=== PATIENT | male | born 1965 | race African-American/Black ===

== ENCOUNTER → 2016-11-11 | Outpatient (CLI) | payer MEDICARE, BC ==
[2016-11-11 16:55] LABS: Anion Gap 9 mmol/L; Blood Urea Nitrogen 16 mg/dL (9-20); Carbon Dioxide 26 mmol/L (22-30); Chloride 106 mmol/L (98-107); Glucose 91 mg/dL (74-99); Non-African American GFR(MDRD) >60 (>60 ml/min/1.73 sqM); Potassium 4.6 mmol/L (3.5-5.1); Sodium 141 mmol/L (137-145)
--- NOTE | 2016-11-12 17:09 | MR ---
MR abdomen with and without contrast HISTORY: Abnormal renal ultrasound Multiplanar multisequence and postcontrast images obtained through the kidneys following 15 cc MultiH ance IV. Exam is correlated to prior ultrasound kidneys 04 July 2015, CT abdomen pelvis without co ntrast October 2014 There is susceptibility artifact due to patient's metallic clips about the level of the cephalad aspe ct of the kidneys. There is no hydronephrosis. Adrenal glands are not seen. Multiple cystic foci are scattered within the kidneys bilaterally compatible with subcentimeter cortical cysts. The isointense focus in the upper pole of the left kidney measures approximately 15 x 18mm and enhances similar to prior exam. There may be some associated fat. Small lesion immediately anterior is less well-defined and shows similar signal characteristics measuring approximately 8 mm in size. No evident retroperito girish adenopathy. Aorta shows normal caliber. No evident liver mass. There is no ascites. Gallbladder is unremarkable. Spleen is normal as seen. Pa ncreas within normal limits. IMPRESSION: Postop changes. The left renal mass appears to be stable. Consider additional follow-up t o assess for stability.
== END | disposition home or self-care (01) ==
LOC: RADMRIMAIN 16:24
PROVIDERS: ATTEND Urology
DX: N28.89 Other specified disorders of kidney and ureter (principal); Z98.890 Other specified postprocedural states
CPT/HCPCS: 80048; 74183; A9577

== ENCOUNTER → 2017-05-08 | Outpatient (CLI) | payer MEDICARE, BC ==
--- NOTE | 2017-05-08 10:09 | US ---
EXAMINATION TYPE: US thyroid st tissue head/neck DATE OF EXAM: 05/08/2017 COMPARISON: US 2016 CLINICAL HISTORY: 52-year-old male Renal Mass N28.89, Goiter E04.2. Follow up thyroid nodules TECHNIQUE: Multiple sonographic images of the thyroid gland were obtained. FINDINGS: GLAND SIZE: Right Lobe: 4.5 x 1.6 x 1.5 cm Overall Parenchyma: homogenous Left Lobe: 4.5 x 1.4 x 1.5 cm Overall Parenchyma: homogeneous Isthmus Thickness: 0.6 cm NODULES RIGHT: # of nodules measured on right: 1 1. 1.0 X 0.7 x 0.9 cm hypoechoic solid nodule at the mid pole with poorly defined margins. This nod ule is wider than tall and shows intranodular vascularity. Prior size: 0.9 x 0.6 x 0.7 cm LEFT: # of nodules measured on left: 2 1. 0.7 X 0.5 x 0.5 cm hypoechoic nodule at the mid pole with well-defined margins. This nodule is w ider than tall and shows intranodular vascularity. Prior size: 0.6 x 0.3 x 0.6 cm 2. 0.4 X 0.3 x 0.4 cm mixed, solid cystic nodule at the lower pole with well-defined margins. This n odule is wider than tall and shows no intranodular vascularity. Prior size: 0.3 x 0.2 x 0.3 cm ISTHMUS: # of nodules measured in the isthmus: 0 Bilateral neck scanned, no evidence of lymphadenopathy. IMPRESSION: 1. A dominant nodule on the right measuring 1 cm and two subcentimeter nodules on the left measuring up to 7 mm. Each of these has minimally increased in size by a millimeter or two. 2. Follow-up can be performed. If any further size increase of the dominant nodule, FNA can be consid ered.
--- NOTE | 2017-05-08 11:05 | US ---
EXAMINATION TYPE: US kidneys/renal and bladder DATE OF EXAM: 05/08/2017 COMPARISON: MRI 11/11/2016, ultrasound 07/04/2015, and CT 10/06/2014, 11/25/2012. CLINICAL HISTORY: 52-year-old male Renal Mass N28.89, Goiter E04.2. Follow up left kidney mass, histo ry of bilateral adrenals removed. TECHNIQUE: Multiple sonographic images of the kidneys and bladder are obtained. FINDINGS: Right Kidney: 10.0 x 4.1 x 5.1 cm with mild pelviectasis, probably transient. No calyceal dilatation . Limited assessment of the lower pole due to bowel gas shadowing. Technology Administrator notes:Two linear echogenic foci seen anterior to upper pole of right kidney, possible s urgical clips from previous adrenalectomy. Left Kidney: 10.0 x 6.0 x 4.5 cm without hydronephrosis. Redemonstrated round heterogeneously echogen ic lesion along the upper to mid pole. This measures 1.5 x 1.5 x 1.4 cm currently and shows some lev pheral vascularity. - On 07/04/2015 ultrasound, it measured 1.6 cm. - It is subtly visualized on the noncontrast 10/06/2014 CT, coronal image 42 measuring 1.6 cm. - It also seems to have been present in retrospect back on the CT of 11/25/2012. Bladder: wnl Bilateral Jets seen: yes IMPRESSION: Essentially stable solid 1.5 cm hyperechoic mass in the upper to midpole left kidney. An enhancing ma ss was present back to the 11/25/2012 CT. 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 Annual ultrasound surveillance can be performed.
== END | disposition home or self-care (01) ==
LOC: RADUSWWP 08:50
PROVIDERS: ATTEND Family Medicine
DX: N28.89 Other specified disorders of kidney and ureter (principal); E04.2 Nontoxic multinodular goiter
CPT/HCPCS: 76536; 76770

== ENCOUNTER → 2017-05-08 | Outpatient (CLI) | payer MEDICARE, BC ==
[2017-05-08 10:06] LABS: Non-African American GFR(MDRD) >60 (>60 ml/min/1.73 sqM)
--- NOTE | 2017-05-08 11:58 | MR ---
EXAMINATION TYPE: MR brain wo/w con DATE OF EXAM: 05/08/2017 COMPARISON: 05/26/2012 HISTORY: Neoplasm of uncertain behavior, Optic nerve tumor removed x 12 years TECHNIQUE: Multiplanar, multisequence images of the brain and brainstem is performed without and with IV contras t, utilizing 7 mL intravenous Gadavist . FINDINGS: There is postsurgical change involving the occiput. Encephalomalacia involving cerebellum on the righ t noted. No enhancing mass. Mild to moderate generalized degenerative change with no midline shift. There is extensive changes of chronic sinusitis. Nonspecific areas of abnormal signal the white matter is most typical remote microvascular cyst anemi a. Demyelinating process not entirely excluded. Intraorbital structures have a symmetric appearance. Optic chiasm has a normal appearance. IMPRESSION: 1. Postsurgical Changes with no evidence of enhancing mass. 2. Degenerative change and nonspecific white matter changes. Correlate for remote microvascular ische gabriel. 3. Extensive changes of chronic sinusitis
== END | disposition home or self-care (01) ==
LOC: RADMRIMAIN 09:33
PROVIDERS: ATTEND Family Medicine
DX: D43.9 Neoplasm of uncertain behavior of central nervous system, unspecified (principal); R90.82 White matter disease, unspecified; G31.9 Degenerative disease of nervous system, unspecified; Z98.890 Other specified postprocedural states
CPT/HCPCS: 82565; 70553; 36415; A9581

== ENCOUNTER → 2017-08-21 | Outpatient (CLI) | payer MEDICARE, BC ==
--- NOTE | 2017-08-21 09:32 | US ---
EXAMINATION TYPE: US thyroid st tissue head/neck DATE OF EXAM: 08/21/2017 COMPARISON: NONE CLINICAL HISTORY: 52-year-old male E04.1 Nontoxic Single Thyroid Nodule. Follow up nodules, no hx of bx TECHNIQUE: Multiple sonographic images of the thyroid gland are obtained. FINDINGS: GLAND SIZE: Right Lobe: 3.3 x 1.4 x 1.8 cm Overall Parenchyma: homogenous Left Lobe: 3.7 x 1.6 x 1.8 cm Overall Parenchyma: homogeneous Isthmus Thickness: 0.8 cm NODULES RIGHT: # of nodules measured on right: 1 1. 0.9 X 0.8 x 0.8 cm hypoechoic solid nodule at the mid pole with poorly defined margins. This no dule is taller than wide and shows intranodular vascularity. Prior size: 1.0 x 0.7 x 0.9 cm LEFT: # of nodules measured on left: 2 1. 7 x 6 x 4 mm hypoechoic solid nodule at the mid pole with well-defined margins. This nodule is wi anibal than tall and shows intranodular vascularity. Prior size: 0.7 x 0.5 x 0.5 cm 2. 0.4 X 0.4 x 0.3 cm mixed nodule at the lower pole with well-defined margins. This nodule is tall er than wide and shows no intranodular vascularity. Prior size: 0.4 x 0.3 x 0.4 cm ISTHMUS: # of nodules measured in the isthmus: 0 Bilateral neck scanned, no evidence of lymphadenopathy. IMPRESSION: A total of 3 subcentimeter nodules, largest on the right measures 9 mm and is relatively stable from 05/08/2017.
== END | disposition home or self-care (01) ==
LOC: RADUSWWP 08:52
PROVIDERS: ATTEND Family Medicine
DX: E04.2 Nontoxic multinodular goiter (principal)
CPT/HCPCS: 76536

== ENCOUNTER → 2017-11-10 | Outpatient (CLI) | payer MEDICARE, BC ==
--- NOTE | 2017-11-10 17:06 | US ---
EXAMINATION TYPE: US kidneys/renal and bladder DATE OF EXAM: 11/10/2017 COMPARISON: US, CT ultrasound 05/08/2017. CLINICAL HISTORY: N28.89 specified disorder of kidney and ureter; patient stated has had bilateral ad renalectomy; following left renal cortical mass. EXAM MEASUREMENTS: Right Kidney: 9.6 x 5.1 x 3.9 cm Left Kidney: 10.3 x 5.5 x 5.9 cm Post Void Residual Volume: 1.9 mL Bilateral hyperechoic linear areas are seen at area of adrenalectomy and could represent surgical cli ps. Right Kidney: No hydronephrosis or masses seen Left Kidney: left upper cortical,round, solid mass is seen again = 1.6 x 1.5 x 1.4cm Bladder: wnl, but not fully distended Bilateral Jets seen: Yes Normal Post Void Residual: Yes IMPRESSION: There is satisfactory bladder emptying. No evidence of renal obstruction. Stable hyperechoic cortical rounded 1.5 cm mass in the upper pole cortex left kidney. This is stable compared to 05/08/2017. This could be a complex cyst.
== END | disposition home or self-care (01) ==
LOC: RADUSWWP 16:18
PROVIDERS: ATTEND Family Medicine
DX: N28.89 Other specified disorders of kidney and ureter (principal)
CPT/HCPCS: 76770

== ENCOUNTER → 2018-01-02 | Outpatient (CLI) | payer MEDICARE, BC ==
--- NOTE | 2018-01-02 10:19 | US ---
EXAMINATION TYPE: US thyroid st tissue head/neck DATE OF EXAM: 01/02/2018 COMPARISON: NONE CLINICAL HISTORY: E04.2 Nontoxic Multinodular Goiter. GLAND SIZE: Prior thyroid ultrasound August 21, 2017 Right Lobe: 4.1 x 1.9 x 1.4 cm Overall Parenchyma: homogenous Left Lobe: 4.7 x 1.7 x 1.6 cm Overall Parenchyma: homogeneous Isthmus Thickness: 0.5 cm NODULES RIGHT: # of nodules measured on right: 1 1. 0.9 X 0.6 x 0.8 cm hypoechoic solid nodule at the mid pole with well-defined margins. This nodu le is wider than tall and shows intranodular vascularity. Prior size: 0.9 x 0.8 x 0.8 cm LEFT: # of nodules measured on left: 2 1. 0.4 X 0.3 x 0.3 cm anechoic cystic nodule at the lower pole with well-defined margins. This nod ule is wider than tall and shows no intranodular vascularity. Prior size: 0.4 x 0.4 x 0.3 cm 2. 0.7 X 0.4 x 0.5 cm hypoechoic solid nodule at the lower pole with well-defined margins. This nod ule is wider than tall and shows no intranodular vascularity. Prior size: 0.7 x 0.6 x 0.4 cm ISTHMUS: # of nodules measured in the isthmus: 0 Bilateral neck scanned, no evidence of lymphadenopathy. There is redemonstration of normal size homogeneous thyroid gland with few scattered small nodules. N o significant interval change. No new nodules are evident. IMPRESSION: Overall stable findings, no new or enlarging nodules identified.
== END | disposition home or self-care (01) ==
LOC: RADUSWWP 09:38
PROVIDERS: ATTEND Family Medicine
DX: E04.2 Nontoxic multinodular goiter (principal)
CPT/HCPCS: 76536

== ENCOUNTER → 2018-05-13 | Outpatient (CLI) | payer MEDICARE, BC ==
--- NOTE | 2018-05-13 10:36 | US ---
EXAMINATION TYPE: US kidneys/renal and bladder DATE OF EXAM: 05/13/2018 COMPARISON: Renal ultrasound dated 11/10/2017 and 05/08/2017. CT dated 11/25/2012. CLINICAL HISTORY: N28.89 Disorders of Kidney and Ureter. follow up left kidney lesion. Patient state s he had both adrenal glands removed due to tumors. EXAM MEASUREMENTS: Right Kidney: 9.1 x 5.2 x 3.7 cm Left Kidney: 9.9 x 4.4 x 6.3 cm Right Kidney: lateral cystic appearing lesion = 0.6 x 0.5 x 0.5 cm Left Kidney: upper pole cortical lesion - 1.5 x 1.4 x 1.4 cm. This seems to be present on the exam of 11/25/2012 and is stable from the priors (renal ultrasound dated 05/08/2017 this measured 1.5 x 1.5 x 1.4 cm as well). Bladder: distended, wnl as visualized Left jet seen There is no evidence for hydronephrosis at this point in time. No nephrolithiasis is seen. The urin dony bladder is anechoic. 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 New c ystic-appearing 6 mm right renal lesion.
== END | disposition home or self-care (01) ==
LOC: RADUSWWP 09:40
PROVIDERS: ATTEND Family Medicine
DX: N28.9 Disorder of kidney and ureter, unspecified (principal)
CPT/HCPCS: 76770

== ENCOUNTER → 2018-07-20 | Outpatient (CLI) | payer MEDICARE, BC ==
--- NOTE | 2018-07-21 07:32 | US ---
EXAMINATION TYPE: US thyroid st tissue head/neck DATE OF EXAM: 07/20/2018 COMPARISON: US CLINICAL HISTORY: E04.1 Nontoxic single thyroid nodule. GLAND SIZE: Right Lobe: 4.1 x 2.1 x 1.2 cm Overall Parenchyma: homogenous Left Lobe: 4.0 x 1.4 x 1.5 cm Overall Parenchyma: homogeneous Isthmus Thickness: 0.4 cm NODULES RIGHT: # of nodules measured on right: 1 1. 0.8 X 0.5 x 0.6 cm hypoechoic solid nodule at the mid pole with well-defined margins. This nodu le is taller than wide and shows intranodular vascularity. Prior size: 0.9 x 0.8 x 0.8 cm LEFT: # of nodules measured on left: 2 1. 0.5 X 0.3 x 0.4 cm anechoic cystic nodule at the lower pole with well-defined margins. This nodu le is wider than tall and shows no intranodular vascularity. Prior size: 0.4 x 0.3 x 0.3 cm 2. 0.6 X 0.4 x 0.4 cm hypoechoic solid nodule at the lower pole with well-defined margins . This no dule is wider than tall and shows intranodular vascularity. Prior size: 0.7 x 0.4 x 0.5 cm ISTHMUS: # of nodules measured in the isthmus: 0 Bilateral neck scanned, no evidence of lymphadenopathy. IMPRESSION: Similar size of the bilateral subcentimeter thyroid nodules with the largest nodule stable back to 09/08/2015 and similar size of the smaller left nodule dating back to 04/15/2016.
== END ==
LOC: RADUSWWP 16:55
PROVIDERS: ATTEND Family Medicine
DX: E04.2 Nontoxic multinodular goiter (principal)
CPT/HCPCS: 76536

== ENCOUNTER → 2019-07-20 | Outpatient (CLI) | payer MEDICARE, BC ==
--- NOTE | 2019-07-21 07:05 | US ---
EXAMINATION TYPE: US thyroid st tissue head/neck DATE OF EXAM: 07/20/2019 COMPARISON: US July 20, 2018 CLINICAL HISTORY: E04.2 Multinodular goiter. GLAND SIZE: Right Lobe: 3.9 x 1.4 x 1.2 cm Overall Parenchyma: homogenous Left Lobe: 4.7 x 15 x 1.6 cm Overall Parenchyma: homogeneous Isthmus Thickness: 0.6 cm NODULES RIGHT: # of nodules measured on right: 1 largest of couple of subcentimeter hypoechoic oval nodules seen 1. 0.3 X 0.3 x 0.3 cm hypoechoic mixed nodule at the mid pole with well-defined margins. This nodu le is wide as is tall and shows intranodular vascularity. Prior size: 0.8 x 0.5 x 0.6 cm LEFT: # of nodules measured on left: 1 1. 0.6 X 0.7 x 0.4 cm hypoechoic complex cystic nodule at the mid pole with well-defined margins. This nodule is wider than tall and shows intranodular vascularity. Prior size: 0.6 x 0.4 x 0.4 cm ISTHMUS: # of nodules measured in the isthmus: 0 Bilateral neck scanned: no evidence of lymphadenopathy. Persistent homogeneous normal-sized thyroid with stable small nodules bilaterally. IMPRESSION: As above, overall stable findings, no greater than 1 cm nodules are present.
== END | disposition home or self-care (01) ==
LOC: RADUSWWP 16:45
PROVIDERS: ATTEND Family Medicine
DX: E04.2 Nontoxic multinodular goiter (principal)
CPT/HCPCS: 76536

== ENCOUNTER → 2020-09-18 | Outpatient (CLI) | payer MEDICARE, BC ==
--- NOTE | 2020-09-19 08:46 | US ---
EXAMINATION TYPE: US thyroid st tissue head/neck DATE OF EXAM: 09/18/2020 COMPARISON: US 2019 CLINICAL HISTORY: E04.2 MULTINODULAR GOITER. GLAND SIZE: Right Lobe: 4.1 x 1.8 x 1.4 cm Overall Parenchyma: homogenous Left Lobe: 4.1 x 1.7 x 1.4 cm Overall Parenchyma: homogeneous Isthmus Thickness: 0.5 cm NODULES RIGHT: # of nodules measured on right: 0 LEFT: # of nodules measured on left: 1 1. 0.7 X 0.3 x 0.6 cm lateral mid pole solid or almost completely solid, hypoechoic nodule, which i s wider than tall, with smooth margins, without echogenic foci. Prior size: 0.6 x 0.7 x 0.4 cm ISTHMUS: # of nodules measured in the isthmus: 0 Bilateral neck scanned, no evidence of lymphadenopathy. IMPRESSION: Subcentimeter nodule left lobe thyroid. Follow-up exam in one year for monitoring. 2017 ACR TI-RADS LEVEL: TR-RADS 4 - Moderately Suspicious: Follow if > 1 cm, FNA if > 1.5 cm *Highest TI-RADS level nodule reported
== END | disposition home or self-care (01) ==
LOC: RADUSWWP 16:47
PROVIDERS: ATTEND Family Medicine
DX: E04.1 Nontoxic single thyroid nodule (principal)
CPT/HCPCS: 76536

== ENCOUNTER → 2023-07-11 | Outpatient (CLI) | payer MEDICARE, OTHER ==
[2023-07-11 18:21] LABS: Appearance,Urine Clear (Clear); Bilirubin,Urine Negative (Negative); Blood,Urine Trace (Negative); Color,Urine Yellow (Yellow); Ketones,Urine Trace (Negative); Nitrite,Urine Negative (Negative); PH, Urine 5.5; Specific Gravity,Urine 1.023 (1.001-1.030)
[2023-07-11 18:24] LABS: HCT 37.9 % (39.6-50.0); HGB 12.7 g/dL (13.0-17.0); MCH 33.9 pg (27.0-32.0); MCHC 33.5 g/dL (32.0-37.0); MCV 101.1 FL (80.0-97.0); Mean Platelet Volume 11.9 FL (9.5-12.2); NRBC Per 100 WBC 0 X 10*3/uL (0.00-0.01); Platelet Count 250 X 10*3/uL (140-440); RBC 3.75 X 10*6/uL (4.40-5.60); RDW 12.6 % (11.5-14.5); WBC 7.45 X 10*3/uL (4.50-10.00)
[2023-07-11 18:25] LABS: Bacteria,Urine None Seen (None Seen)
[2023-07-11 18:48] LABS: ALT 12 U/L (10-49); AST 22 U/L (14-35); Albumin 4.3 g/dL (3.8-4.9); Albumin/Globulin Ratio 1.72 Ratio (1.60-3.17); Alkaline Phosphatase 69 U/L (41-126); BUN/Creat Ratio 13.22 Ratio (12.00-20.00); Blood Urea Nitrogen 11.9 mg/dL (9.0-27.0); Calcium 9.9 mg/dL (8.7-10.3); Carbon Dioxide 24.6 mmol/L (21.6-31.8); Chloride 107 mmol/L (96-109); Chol/HDL Ratio 2.47 Ratio; Globulin 2.5 g/dL (1.6-3.3); Glucose 90 mg/dL (70-110); Potassium 4.1 mmol/L (3.5-5.5); Prostate Specific Antigen 0.56 ng/mL (0.000-3.500); Sodium 145 mmol/L (135-145); Total Bilirubin 0.2 mg/dL (0.3-1.2); Total Protein 6.8 g/dL (6.2-8.2)
== END | disposition home or self-care (01) ==
LOC: LABWHC1 09:01
PROVIDERS: ATTEND Family Medicine
DX: Z00.01 Encounter for general adult medical examination with abnormal findings (principal); I10 Essential (primary) hypertension; E78.00 Pure hypercholesterolemia, unspecified
CPT/HCPCS: 36415; 80053; 80061; 81001; 84153; 85027

== ENCOUNTER → 2023-10-20 | Outpatient (CLI) | payer MEDICARE, OTHER | END | disposition home or self-care (01) | LOC: LABWHC1 11:55 | PROVIDERS: ATTEND Student in an Organized Health Care Education/Training Program | DX: E11.9 Type 2 diabetes mellitus without complications (principal) | CPT/HCPCS: 36415; 83036 ==

== ENCOUNTER → 2023-11-10 | Outpatient (CLI) | payer MEDICARE, OTHER ==
[2023-11-10 16:46] LABS: T4, Free (Free Thyroxine) 1.13 ng/dL (0.80-1.80)
== END | disposition home or self-care (01) ==
LOC: LABWHC1 10:04
PROVIDERS: ATTEND Internal Medicine
DX: E27.8 Other specified disorders of adrenal gland (principal); E04.2 Nontoxic multinodular goiter; E55.9 Vitamin D deficiency, unspecified
CPT/HCPCS: 36415; 82306; 83835; 84439; 84443

== ENCOUNTER → 2024-07-05 | Outpatient (CLI) | payer OTHER, MEDICARE | END | disposition home or self-care (01) | LOC: LABWHC1 10:47 | PROVIDERS: ATTEND Internal Medicine Endocrinology, Diabetes & Metabolism | DX: E27.40 Unspecified adrenocortical insufficiency (principal); Q85.83 Von Hippel-Lindau syndrome; Z86.018 Personal history of other benign neoplasm | CPT/HCPCS: 36415; 82024; 82626; 83835 ==

== ENCOUNTER → 2024-07-19 | Outpatient (CLI) | payer OTHER, MEDICARE ==
--- NOTE | 2024-07-19 18:11 | MR ---
EXAMINATION TYPE: MR thoracic spine wo/w con DATE OF EXAM: 07/19/2024 5:44 PM COMPARISON: None. 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 IV Contrast: 6 mL Gadavist (None, if empty) FINDINGS: Alignment: Mild scoliotic alignment. Vertebral bodies have preserved heights. Spinal cord: Spinal cord is within normal limits for signal. No abnormal postcontrast enhancement. Discs: Intervertebral disc signal is maintained. No evidence of significant spinal canal or neural fo raminal stenosis. There is no evidence of extradural defects or central spinal canal narrowing at any thoracic vertebral body level No abnormal postcontrast enhancement. Osseous structures: No abnormal bony edema on inversion recovery sequences. Multilevel osteophyte for mation and facet joint arthropathy are minimal. Scattered disc space narrowing. No abnormal postcontr ast enhancement. IMPRESSION: 1. No evidence for mass. No abnormal postcontrast enhancement. 2. No significant spinal canal or neural foraminal stenosis. 3. Mild degeneration changes throughout the spine. [facility], , 07/19/2024 6:09 PM
== END | disposition home or self-care (01) ==
LOC: RADMRIMAIN 16:19
PROVIDERS: ATTEND Internal Medicine Endocrinology, Diabetes & Metabolism
DX: M47.814 Spondylosis without myelopathy or radiculopathy, thoracic region (principal); Q85.83 Von Hippel-Lindau syndrome; Z87.898 Personal history of other specified conditions
CPT/HCPCS: 72157; A9585

== ENCOUNTER → 2024-08-02 | Outpatient (CLI) | payer OTHER, MEDICARE ==
--- NOTE | 2024-08-02 11:33 | MR ---
EXAMINATION TYPE: MR abdomen wo/w con DATE OF EXAM: 08/02/2024 10:06 AM INDICATION: Patient age:Male; 59 years old; Reason for study: Benign tumors of the kidneys, history of von Hippel-Lindau COMPARISON: Renal ultrasound 05/13/2018, 11/10/2017, 05/08/2017, 07/04/2015, MR abdomen 11/11/2016 TECHNIQUE: Multiplanar multi-sequence imaging was performed without and with IV contrast. The patien t was given 5 ccs of Gadobutrol intravenously and dynamic imaging was performed. Post IV contrast sub traction images were also submitted for review. FINDINGS: LOWER CHEST: No gross irregularity. Median sternotomy wires. ABDOMEN Liver: Unremarkable. Gallbladder and Bile ducts: Unremarkable. Pancreas: Unremarkable. Spleen: Unremarkable. Adrenal glands: Unremarkable. Kidneys: No hydronephrosis. Multiple cystic foci are scattered within the kidneys bilaterally compati ble with subcentimeter cortical cysts again. Several of these demonstrate intrinsic T1 hyperintensity without enhancement consistent with proteinaceous/hemorrhagic cyst. Redemonstration of isointense fo cus within the upper pole of the left kidney measuring 1.4 x 1.2 cm, previously 1.5 x 1.8 cm. This en hances similar to prior exam. No definitive drop out of signal on out of phase imaging. Small lesion immediately anterior is less well-defined shows similar signal characteristics measuring approximatel y 0.8 cm in size. Susceptibility artifact around the kidneys related to surgical clips again. Stomach and Bowel: Unremarkable as visualized. Peritoneum: No evidence of pneumoperitoneum, free fluid, or adenopathy. Vasculature: Unremarkable. No aortic aneurysm. Abdominal wall: Unremarkable. Musculoskeletal: The osseous structures appear intact. IMPRESSION: Postoperative changes with stable 1.4 cm left renal mass dating back to prior MR 11/11/2016 and consid ered benign. Additional stable subcentimeter proteinaceous/hemorrhagic cysts and simple renal cysts. [facility], , 08/02/2024 11:30 AM
== END | disposition home or self-care (01) ==
LOC: RADMRIMAIN 08:48
PROVIDERS: ATTEND Internal Medicine Endocrinology, Diabetes & Metabolism
DX: Q85.83 Von Hippel-Lindau syndrome (principal); N28.1 Cyst of kidney, acquired; Z87.898 Personal history of other specified conditions
CPT/HCPCS: 74183; A9585

== ENCOUNTER → 2024-08-05 | Outpatient (CLI) | payer OTHER, MEDICARE ==
--- NOTE | 2024-08-05 11:44 | MR ---
EXAMINATION TYPE: MR eugenioine/lspine wo con DATE OF EXAM: 08/05/2024 10:58 AM COMPARISON: None. 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 FINDINGS: CERVICAL SPINE: Previous encephalomalacia throughout the right cerebellum remains unchanged. No craniocervical junction abnormality, predental space widening, or prevertebral soft tissue swellin g. Reversal of the normal cervical lordosis but with preserved alignment. There is mild degenerative disc disease throughout which has progressed from 2013 with a disc desicca tion and minimal bulging discs. Interval development of edematous Modic type I endplate change at C6- C7. Disc osteophyte complexes impress on the ventral thecal sac without significant spinal canal stenosis . The previous abnormal signal within the right hemicord extending from C2 down through C4 appears to h ave improved. Tiny focus of increased signal within the dorsal right hemicord opposite the C3 level a nd C4-C5 level is noted. Additional abnormal signal at the C7 dorsal right hemicord has also resolved . Scattered moderate facet and uncovertebral joint arthropathy. Changes result in variable mild neuroforaminal narrowing throughout. Suspect some layering fluid at the level of the larynx and oropharynx. LUMBAR SPINE: Vertebral body heights are preserved and alignment is maintained. Mild degenerative disc disease with desiccated, minimally narrowed common bulging discs lower lumbar spine. Minimal edematous Modic type I endplate changes anteriorly at L3-L4. There is a transitional lumbosacral segment denoted as a sacralized L5. Some mild to moderate facet arthropathy lower lumbar spine along with mild ligamentum flavum thickeni ng. Conus medullaris is normal. Conus medullaris is normal. Bulging disc at L3-L4 L4-L5 minimally narrows the spinal canal. No large focal disc herniation or sig nificant spinal canal stenosis. On the left, changes result in minimal neuroforaminal narrowing at L4-L5. No significant neuroforamin al stenosis seen. Underlying renal lesions better evaluated on the patient's recent 08/02/2024 abdominal MRI. IMPRESSION: CERVICAL SPINE: 1. Mild degenerative disc disease throughout has progressed from 2013. Also, interval development of edematous Modic type I endplate change at C6-C7. Minimal posterior disc bulging remains. No focal dis c herniation or spinal canal stenosis. 2. Previous abnormal cord signal extending from C2 down through C4 as well as at the dorsal right C7 level appears to have resolved. 2 small foci of increased signal within the dorsal right hemicord are now noted at C3 and at C4-C5. 3. Scattered moderate facet arthropathy with variable mild foraminal narrowing throughout. Lumbar spine: 4. Transitional lumbosacral segment denoted as a sacralized L5. 5. Mild degenerative disc disease mid to lower lumbar spine. Some associated edematous Modic type end plate change anteriorly at L3-L4. 6. Bulging discs at L3-L4 and L4-L5 minimally narrow the spinal canal. No focal disc herniation or si gnificant spinal canal stenosis. 7. Scattered mild to moderate this arthropathy mid to lower lumbar spine. No significant neuroforamin al stenosis seen. [facility], , 08/05/2024 11:41 AM
== END | disposition home or self-care (01) ==
LOC: RADMRIMAIN 10:02
PROVIDERS: ATTEND Internal Medicine Endocrinology, Diabetes & Metabolism
DX: Q85.83 Von Hippel-Lindau syndrome (principal); M51.360 Other intervertebral disc degeneration, lumbar region with discogenic back pain only; M47.816 Spondylosis without myelopathy or radiculopathy, lumbar region; M48.02 Spinal stenosis, cervical region; Z87.898 Personal history of other specified conditions
CPT/HCPCS: 72141; 72148

== ENCOUNTER → 2024-08-17 | Outpatient (CLI) | payer OTHER, MEDICARE ==
--- NOTE | 2024-08-17 15:10 | MR ---
EXAMINATION TYPE: MR lumbar spine w con DATE OF EXAM: 08/17/2024 COMPARISON: NONE HISTORY: Von Hippel-Lindau Syndrome. TECHNIQUE: Multiplanar, multisequence images of the lumbar spine is performed with IV contrast, utilizing 5.5 mL intravenous Gadobutrol FINDINGS: Sagittal images of the lumbar spine show vertebral body heights and alignment to remain sat isfactory. Postcontrast images show no suspicious enhancing intradural or extradural masses. No suspi cious or abnormal osseous enhancement is seen. Some wall thickening in the overlying sigmoid colon po sterior to the bladder is partially imaged with colonic diverticula. Underlying mass or neoplasm sergio ot be excluded on this study. Correlate with recent colonoscopy, colonoscopy evaluation should be con sidered if patient has not had colonoscopy in last 3 years. IMPRESSION: No abnormal enhancement or enhancing masses in the lumbar spine. Other findings as noted above. [facility], , 08/17/2024 3:07 PM
--- NOTE | 2024-08-18 08:32 | MR ---
EXAMINATION TYPE: MR cervical spine w con DATE OF EXAM: 08/17/2024 2:01 PM COMPARISON: 08/05/2024. 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 TECHNIQUE: Postcontrast T1 sequences only and sagittal and axial planes IV Contrast: 5.5 mL Gadobutro l (None, if empty) FINDINGS: Postcontrast imaging only demonstrates a foci of enhancement posteriorly at the level of C2, C3, C4-C 5 disc space and posterior to this C7. All measuring 1-2 mm. 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 Cl ose surveillance recommended. [facility], , 08/18/2024 8:30 AM
--- NOTE | 2024-08-18 08:46 | MR ---
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 Specialized thin s equences were obtained through the internal auditory canals. Pre-and post gadolinium sequences were obtained. IV Contrast: 5.5 mL Gadobutrol FINDINGS: Postsurgical changes of the cerebellum. No abnormal postcontrast enhancement within the surgical bed Mild dilation of ventricular system in proportion to cerebral atrophy. There is enhancing focus near the left tentorium measuring up to 5 mm x 4 mm previously 3 mm x 3 mm on 05/08/2017 and not definitive ly visualized on 05/26/2012 exam. This is only seen on axial imaging is per IAC protocol. The craven-white junctions, ventricular system, and cisterns appear unremarkable. Scattered foci of h igh T2 signal intensity are seen within the periventricular white matter. Midline structures show no abnormality. Diffusion-weighted imaging shows no evidence of restricted diffusion. The susceptibility weighted images do not reveal any evidence for micro-hemorrhage. The bone marrow signal is within normal limits. Paranasal sinuses and mastoid air cells: Mild scattered paranasal sinus disease. Visualized orbits: Orbital contents are intact. After administration of gadolinium, no abnormal enhancement is seen. The internal auditory canal sequences demonstrate no significant irregularity. The 7th cranial nerve s, 8 cranial nerves, and cerebellar pontine angles appear unremarkable. After the administration amara olinium, no abnormal enhancement is seen within the internal auditory canals. Vascular loop: None. IMPRESSION: 1. Postsurgical changes to the right cerebellum. 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 2. No evidence of intracranial mass nor acute/subacute CVA. 3. No evidence of internal auditory canal abnormality. 4. Nonspecific white matter changes, likely secondary to small vessel ischemic disease. [facility], , 08/18/2024 8:43 AM
== END | disposition home or self-care (01) ==
LOC: RADMRIMAIN 13:03
PROVIDERS: ATTEND Internal Medicine Endocrinology, Diabetes & Metabolism
DX: Q85.83 Von Hippel-Lindau syndrome (principal); Z87.898 Personal history of other specified conditions; K57.30 Diverticulosis of large intestine without perforation or abscess without bleeding
CPT/HCPCS: 72142; 72149; 70553; A9585

== ENCOUNTER 2024-10-15 11:19 | Day surgery (SDC) | payer OTHER, MEDICARE ==
[2024-10-14 13:40] VITALS: BMI 20.2
[2024-10-15] MEDS: IV FLUID CONTINUATION 1,000 ML IV ONE (11:44)
[2024-10-15 11:51] VITALS: RESP 16; TEMP 97.5
[2024-10-15 11:57] LABS: Glucose,Whole Blood 89 mg/dL (70-110)
[2024-10-15] MEDS: HYDROCORTISONE SUCCINATE 100 MG/2 ML VIAL IV STA (12:02)
[2024-10-15] MEDS: LACTATED RINGERS 1,000 ML IV SCH (12:02)
[2024-10-15] MEDS ORDERED: PROPOFOL 10 MG/ML 20 ML VIAL IV ONE (12:31)
--- NOTE | 2024-10-15 12:56 | P.PCN ---
Date of Procedure: 10/15/24 Procedure(s) Performed: BRIEF HISTORY: Patient is a 59-year-old pleasant male scheduled for an elective colonoscopy as a part of screening for colon cancer. His last colonoscopy was 10 years ago. PROCEDURE PERFORMED: Colonoscopy. PREOPERATIVE DIAGNOSIS: Screening for colon cancer. IV sedation per Anesthesia. PROCEDURE: After informed consent was obtained, the patient, was brought into the endoscopy unit. IV sedation was administered by Anesthesia under continuous monitoring. Digital rectal examination was normal. Initially the Olympus CF-160 flexible video colonoscope was then inserted in the rectum, gradually advanced into the rectum and further advancement was more possible. The scope was removed. Colonoscopy was admitted to the rectum and gradually advanced into the proximal sigmoid colon and further advancement was not possible because of acute sigmoid angulation. At this time an upper endoscope was used and was gradually advanced into the cecum with some difficulty. Careful examination was performed as the scope was gradually being withdrawn. Ileocecal valve and the appendiceal orifice were visualized and appeared normal. Prep was excellent. Mucosa of the cecum, ascending colon, transverse colon, descending colon, sigmoid colon, and rectum appeared normal. Scattered sigmoid diverticulosis.. Retroflexion was performed in the rectum and no lesions were seen. The patient tolerated the procedure well. IMPRESSION: Normal-appearing colon from rectum to cecum no evidence of colorectal neoplasia. Scattered sigmoid diverticulosis. Grade 2 internal hemorrhoids. RECOMMENDATIONS: Findings of this examination were discussed with the patient as well as his family. He was advised to be on high-fiber diet and take fiber supplements on a regular basis. Recommended repeat screening colonoscopy in 10 years..
[2024-10-15 13:16] VITALS: BP 106/68; PULSE 65
== END 2024-10-15 13:38 | disposition home or self-care (01) ==
LOC: ORWHC2ENDO 11:19
PROVIDERS: ATTEND Internal Medicine Gastroenterology
DX: Z12.11 Encounter for screening for malignant neoplasm of colon (principal); K57.30 Diverticulosis of large intestine without perforation or abscess without bleeding; K64.1 Second degree hemorrhoids; I10 Essential (primary) hypertension; Q85.83 Von Hippel-Lindau syndrome; H54.8 Legal blindness, as defined in USA; Z79.899 Other long term (current) drug therapy; Z98.890 Other specified postprocedural states; Z88.8 Allergy status to other drugs, medicaments and biological substances
CPT/HCPCS: J1720; J2704; G0121